=== PATIENT | male | born 1985 | race Two or more races ===

== ENCOUNTER 2018-11-05 21:02 | Emergency (ER) | payer MEDICAID, OTHER ==
--- NOTE | 2018-11-05 22:20 | EDM.PDOC ---
ED HPI GENERAL MEDICAL PROBLEM - General Chief Complaint: Lower Extremity Injury/Pain Stated Complaint: FELL BROKE TOE Time Seen by Provider: 11/05/18 22:18 Source of Information: Reports: Patient History Limitations: Reports: No Limitations - History of Present Illness INITIAL COMMENTS - FREE TEXT/NARRATIVE: 33-year-old male fell out of bed last night injuring his right great toe. Tonight it's black and blue and painful to bear weight so he came in to have it checked. No other injury. Onset: Sudden Duration: Hour(s): (Around 20 hours ago) Location: Reports: Lower Extremity, Left Associated Symptoms: Reports: No Other Symptoms Right Toe-Hailux Pain Score (Numeric/FACES): 5 - Related Data Allergies Allergy/AdvReac Type Severity Reaction Status Date / Time Penicillins Allergy Cannot Verified 11/05/18 22:00 Remember Home Meds: Home Meds Desvenlafaxine [Pristiq] 100 mg PO DAILY 11/05/18 [History] LORazepam [Ativan] 1 mg PO QID PRN 11/05/18 [History] Pregabalin [Lyrica] 150 mg PO TID 11/05/18 [History] traZODone 150 mg PO BEDTIME PRN 11/05/18 [History] Past Medical History HEENT History: Reports: Otitis Media Respiratory History: Reports: Other (See Below) Other Respiratory History: hystoplasmosis Gastrointestinal History: Reports: GERD, Pancreatitis, Other (See Below) Musculoskeletal History: Reports: Fracture Neurological History: Reports: Concussion, Neuropathy, Peripheral, Seizure Psychiatric History: Reports: Addiction, Anxiety, Depression, Panic Attack, Psych Hospitalization(s) Oncologic (Cancer) History: Reports: Other (See Below) Other Oncologic History: neoendocrin tumors Dermatologic History: Reports: Eczema - Infectious Disease History Infectious Disease History: Reports: Chicken Pox, Mononucleosis - Past Surgical History HEENT Surgical History: Reports: Adenoidectomy, Myringotomy w Tube(s), Tonsillectomy Respiratory Surgical History: Reports: Lung Biopsies GI Surgical History: Reports: Colonoscopy, Hernia Repair/Other, Other (See Below ) Other GI Surgeries/Procedures: neoendrocin tumors removed Male Surgical History: Reports: Other (See Below) Other Male Surgeries/Procedures: kidney biopsies Musculoskeletal Surgical History: Reports: Other (See Below) Other Musculoskeletal Surgeries/Procedures:: left wrist repair Social & Family History - Tobacco Use Smoking Status *Q: Current Every Day Smoker Years of Tobacco use: 15 Packs/Tins Daily: 1 - Caffeine Use Caffeine Use: Reports: Soda - Recreational Drug Use Recreational Drug Use: Yes Drug Use in Last 12 Months: No Recreational Drug Type: Reports: Cocaine, Methamphetamine Recreational Drug Use Frequency: Not Used In Over 6 Months Review of Systems - Review of Systems Review Of Systems: See Below Constitutional: Denies: Fever Respiratory: Denies: Shortness of Breath Cardiovascular: Denies: Chest Pain GI/Abdominal: Denies: Abdominal Pain Skin: Reports: Bruising (Significant bruising around the great toe) ED EXAM, GENERAL - Physical Exam Exam: See Below Exam Limited By: No Limitations General Appearance: Alert, No Apparent Distress (Uncomfortable but not distressed) Neck: Normal Inspection Respiratory/Chest: No Respiratory Distress, Lungs Clear Cardiovascular: Regular Rate, Rhythm Extremities: Other (The right great toe is ecchymotic and very tender to palpation through the DIP joint, there is no subungual hematoma and sensation is intact to the distal toe) Course - Vital Signs Last Recorded V/S: Last Vital Signs Temp 97.1 F 11/05/18 22:05 Pulse 112 H 11/05/18 22:05 Resp 20 11/05/18 22:05 BP 138/95 H 11/05/18 22:05 Pulse Ox 97 11/05/18 22:05 - Orders/Labs/Meds Orders: Active Orders 24 hr Category Date Time Status DME for Discharge [COMM] Stat Oth 11/05/18 22:56 Ordered Meds: Medications Discontinued Medications Generic Name Dose Route Start Last Admin Trade Name Ryan PRN Reason Stop Dose Admin Ketorolac Tromethamine 60 mg 11/05/18 22:49 11/05/18 22:55 Toradol IM 11/05/18 22:50 60 mg ONETIME ONE Administration - Re-Assessments/Exams Free Text/Narrative Re-Assessment/Exam: 11/05/18 22:51 An x-ray of the toe was done and it shows a small evulsion fracture of the proximal dorsal aspect of the distal phalanx. Patient was given 60 mg of IM Toradol, a copy of the x-ray and told to follow-up with orthopedics in [place] next week. He was also given 6 Vicodin to use for pain control over the next 24 hours. Departure - Departure Time of Disposition: 23:10 Disposition: Home, Self-Care 01 Clinical Impression: Toe fracture, left Qualifiers: Encounter type: initial encounter Toe: great toe Fracture type: closed Phalanx : distal Fracture alignment: displaced Qualified Code(s): S92.422A - Displaced fracture of distal phalanx of left great toe, initial encounter for closed fracture - Discharge Information Instructions: Toe Fracture, [id number] Referrals: PCP,None [Primary Care Provider] - Forms: ED Department Discharge Care Plan Goals: Use crutches through the weekend and elevate foot when able. Continue with ibuprofen and use stronger pain medication sparingly if needed. Recheck with podiatry in [place] next week. - My Orders Last 24 Hours: My Active Orders 11/05/18 22:56 DME for Discharge [COMM] Stat - Assessment/Plan Last 24 Hours: My Active Orders 11/05/18 22:56 DME for Discharge [COMM] Stat
[2018-11-05] MEDS ORDERED: Ketorolac 60 MG/2 ML SDV IM ONE (22:49)
--- NOTE | 2018-11-05 23:28 | CRLCR ---
Indication: Injury Technique: Three views right 1st toe Comparison: None Findings: Bones: Minimally displaced, likely intra-articular fracture at the base of the 1st distal phalanx. Joint spaces: Unremarkable. Soft tissues: Unremarkable. Impression: Minimally displaced, likely intra-articular fracture at the base of the right 1st distal phalanx. Dictated by Samantha Case MD @ Nov 05 2018 11:24PM Signed by Dr. Samantha Case @ Nov 05 2018 11:26PM
== END 2018-11-05 23:11 | disposition home or self-care (01) ==
LOC: JP.ED 21:02
DX: S92.422A Displaced fracture of distal phalanx of left great toe, initial encounter for closed fracture (principal); W06.XXXA Fall from bed, initial encounter
CPT/HCPCS: 73660; 96372; 99283; J1885